=== PATIENT | male | born 2000 | race Two or more races ===

== ENCOUNTER 2019-06-29 12:06 | Emergency (ER) | payer OTHER ==
[~2019-06-29] VITALS: Ht 180.3 cm; Wt 95.3 kg
[2019-06-29 12:12] VITALS: BP 147/84
[2019-06-29] MEDS ORDERED: NKM (12:17)
[2019-06-29] MEDS ORDERED: Mylanta II UD 30ml ORAL ONE (13:00)
[2019-06-29] MEDS ORDERED: Ketorolac 30mg Inj IM ONE (13:00)
[2019-06-29] MEDS ORDERED: Dicyclomine HCl 10mg/5ml oral soln ORAL ONE (13:00)
[2019-06-29 13:46] LABS: APPEARANCE,URINE CLEAR; BILIRUBIN, URINE NEGATIVE (NEGATIVE); COLOR,URINE PALE YELLOW; GLUCOSE, URINE (UA) NEGATIVE (NEGATIVE); KETONES,URINE NEGATIVE (NEGATIVE); LEUKOCYTE ESTERASE ,URINE NEGATIVE (NEGATIVE); NITRITE,URINE NEGATIVE (NEGATIVE); PH,URINE 7 (4.5-8.0); PROTEIN,URINE NEGATIVE (NEGATIVE); UROBILINOGEN,URINE NORMAL MG/DL (0.0-1.0)
--- NOTE | 2019-06-29 14:10 | Emergency Room Report ---
History of Present Illness General Chief Complaint: Lower Back Pain or Injury Source: Patient Present Illness HPI 19-year-old male presents to the emergency department with 2 complaints. Patient reports first complaint as having several episodes of vomiting and epigastric burning pain x2 days. Patient reports vomiting has for the most part subsided but he is still having nausea and abdominal pain in the epigastric area which is exacerbated when he attempts to eat any food. He denies constipation or diarrhea he denies recent travel or ill contacts with similar symptoms. He reports that he is able to pass gas. Patient states that yesterday he had 2 episodes of vomiting prior to going to work. Patient states that once he was at work he believes he may have strained his back. 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 He denies saddle anesthesia, urinary incontinence or retention. He reports he had similar symptoms once in the past which resolved within 1 day. Patient states that his pain is present with attempts to sit up or when he attempts to walk. He denies lower extremity weakness. He denies any other specific trauma or falls. He reports pain is primarily on the left lower back he denies midline bony tenderness or pain. Allergies: Uncoded Allergies: PENICILIN (Allergy, Unknown, 06/29/19) Patient History Past Medical History: see triage record Past Surgical History: none Pertinent Family History: none Reviewed Nursing Documentation: PMH: Agreed; PSxH: Agreed Nursing Documentation-PMH Past Medical History: No Stated History Review of Systems All Other Systems: negative except mentioned in HPI Physical Exam Vital Signs Date Time Temp Pulse Resp B/P (MAP) Pulse Ox O2 Delivery O2 Flow Rate FiO2 06/29/19 12:12 98.4 79 49 147/84 97 Room Air Sp02 EP Interpretation: reviewed, normal General Appearance: no apparent distress, alert, GCS 15, non-toxic Head: normocephalic, atraumatic Eyes: bilateral eye normal inspection, bilateral eye PERRL ENT: hearing grossly normal, normal voice Neck: full range of motion Respiratory: lungs clear, normal breath sounds, speaking full sentences Cardiovascular #1: regular rate, rhythm Gastrointestinal: normal bowel sounds, soft, tenderness - mild epigastric Rectal: deferred Genitourinary: normal inspection, no CVA tenderness Musculoskeletal: gait/station normal - Dilatory without assistance., normal range of motion, tender - Tenderness to palpation to the left lumbar paraspinal musculature and left upper gluteal musculature with radiation down the left leg. No midline lumbar spinous process tenderness or palpable step-offs. Patient is noted to have pain with range of motion testing but is able to perform. Neurologic: alert, oriented x3, responsive, motor strength/tone normal, sensory intact, speech normal, grossly normal Psychiatric: judgement/insight normal Skin: no rash, normal color Lymphatic: no adenopathy Medical Decision Making PA Attestation Dr. Cancino Is my supervising Physician whom patient management has been discussed with. Diagnostic Impression: Primary Impression: Low back pain Qualified Codes: M54.5 - Low back pain Additional Impressions: Vomiting Qualified Codes: R11.2 - Nausea with vomiting, unspecified Abdominal pain Qualified Codes: R10.13 - Epigastric pain ER Course 19-year-old male presents to the emergency department with 2 complaints. Patient reports first complaint as having several episodes of vomiting and epigastric burning pain x2 days. Patient reports vomiting has for the most part subsided but he is still having nausea and abdominal pain in the epigastric area which is exacerbated when he attempts to eat any food. He denies constipation or diarrhea he denies recent travel or ill contacts with similar symptoms. He reports that he is able to pass gas. Patient states that yesterday he had 2 episodes of vomiting prior to going to work. Patient states that once he was at work he believes he may have strained his back. 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 He denies saddle anesthesia, urinary incontinence or retention. He reports he had similar symptoms once in the past which resolved within 1 day. Patient states that his pain is present with attempts to sit up or when he attempts to walk. He denies lower extremity weakness. He denies any other specific trauma or falls. He reports pain is primarily on the left lower back he denies midline bony tenderness or pain. Ddx considered but are not limited to Fracture, dislocation, contusion, epidural abscess, Sciatica pain, Sprain/Strain/Spasm, gastritis, AAA, SBO, Pyelo/UTI just to name a few Vital signs: are WNL, pt. is afebrile H&PE are most consistent with sciatica and gastritis, onset same day however hours apart, and History suggests back pain to be MSK in etiology. pt. is non- toxic in appearance, NAD. ambulatory without assistance. Physical exam does not suggest acute abdomen at this time. ORDERS: -X-ray not required at this time, no spinous process tenderness -UA: WNL ED INTERVENTIONS: IM Toradol 30mg. -Soma PO -GI Cocktail Re-Evaluation: pt. states his pain has subsided with ED interventions. After above interventions this patient successfully completed oral fluid challenge without nausea or vomiting. DISCHARGE: At this time pt. is stable for d/c to home. Will provide printed patient care instructions, and any necessary prescriptions. Care plan and follow up instructions have been discussed with the patient prior to discharge. Labs Test 06/29/19 13:14 Urine Color Pale yellow Urine Appearance Clear Urine pH 7 (4.5-8.0) Urine Specific [place] 1.005 (1.005-1.035) Urine Protein Negative (NEGATIVE) Urine Glucose (UA) Negative (NEGATIVE) Urine Ketones Negative (NEGATIVE) Urine Blood Negative (NEGATIVE) Urine Nitrite Negative (NEGATIVE) Urine Bilirubin Negative (NEGATIVE) Urine Urobilinogen Normal MG/DL (0.0-1.0) Urine Leukocyte Esterase Negative (NEGATIVE) Last Vital Signs Date Time Temp Pulse Resp B/P (MAP) Pulse Ox O2 Delivery O2 Flow Rate FiO2 06/29/19 12:12 98.4 79 49 147/84 (105) 97 Room Air Disposition: HOME, SELF-CARE Condition: Stable Scripts Ranitidine Hcl* (ZANTAC*) 150 Mg Tablet 150 MG ORAL TWICE A DAY for 14 Days, #28 TAB Prov: Kayleigh Madrigal 06/29/19 Lidocaine Patch* (Lidoderm Patch*) 1 Each Adh..patch 1 PATCH TOPIC DAILY, #30 PATCH 0 Refills Patch(es) may remain in place for up to 12 hours in any 24-hour period. Prov: Kayleigh Madrigal 06/29/19 Acetaminophen* (TYLENOL EXTRA STRENGTH*) 500 Mg Tablet 500 MG ORAL Q6H, #20 TAB 0 Refills Prov: Kayleigh Madrigal 06/29/19 Methocarbamol* (ROBAXIN-750*) 750 Mg Tablet 750 MG PO QID, #28 TAB 0 Refills Prov: Kayleigh Madrigal 06/29/19 Departure Forms: Return to Work Return to Work Date: Jul 03, 2019 Work Restrictions: None, No Heavy Lifting, No Prolonged Standing, Desk Work Only Other Restrictions: May return Sooner if Symptoms have resolved. Return to Full Activity: Jul 03, 2019 Patient Instructions: Gastritis, Adult, Jmwo-of-Site, Lumbosacral Strain Additional Instructions: Take medications as directed. Follow up with a Primary Care Provider in 3-5 days, even if your symptoms have resolved. --Please review list of primary care clinics, if you do not already have a primary care provider Return sooner to ED if new symptoms occur, or current symptoms become worse. Do not drink alcohol, drive, or operate heavy machinery while taking Robaxin as this may cause drowsiness. - Please note that this Emergency Department Report was dictated using [employer] nurse technology software, occasionally this can lead to erroneous entry secondary to interpretation by the dictation equipment. Kayleigh Madrigal Jun 29, 2019 14:10
[2019-06-29] MEDS ORDERED: TYLENOL EXTRA500 MG ORAL (14:12)
[2019-06-29] MEDS ORDERED: ZANTAC150 MG ORAL (14:12)
[2019-06-29] MEDS ORDERED: ROBAXIN-750750 MG PO (14:12)
[2019-06-29] MEDS ORDERED: LIDODERM700 M1 TOPIC (14:12)
[2019-06-29 14:22] VITALS: BP 130/82
== END 2019-06-29 14:20 | disposition home or self-care (01) ==
LOC: EMR 14:08
DX: M54.5 Low back pain (principal); R11.2 Nausea with vomiting, unspecified; R10.13 Epigastric pain; Z88.0 Allergy status to penicillin
CPT/HCPCS: 81003; 96372; J1885; Z7502; 99283